=== PATIENT | male | born 1960 | race Two or more races ===

== ENCOUNTER 2023-12-25 10:35 | Emergency (ER) | payer MEDICARE, MEDICAID ==
[~2023-12-25] VITALS: Ht 175.3 cm; Wt 111.0 kg
--- NOTE | 2023-12-25 10:53 | ED.PDOC ---
HPI (NEURO) HPI Comments HPI: Poor Historian. 63-year-old male presents with four day history of nonspecific left-sided behind the ear pain that is worse with movement. No other particular alleviating or precipitating factors. Denies any other associated symptoms. Pain in the a particular focal area when he rotates his head left and right. Past Medcial History: CVA, hyperlipidemia Past Surgical History: Denies social history: endorses tobacco use, denies ETOH use, denies drug use medications: denies allergies: NKDA Vitals: Temp: 98.0 F Heart rate: 73 RR: 16 BP: 105/61 02 sat: 95% on room air REVIEW OF SYSTEMS: CONSTITUTIONAL: Denies acute: fever, diaphoresis, chills, generalized weakness. HEAD: Denies acute: photophobia Eyes: Denies acute: Double vision, vision loss, eye pain, eye discharge. EARS: Denies acute: tinnitus, hearing loss, ear discharge, ear pain, THROAT: Denies acute: sore throat, swelling, difficulty swallowing , pain with swall owing, change in voice. NECK: Denies acute: neck pain, neck swelling, stiff neck. HEART: Denies acute : chest pain, palpitations, LUNGS: Denies acute: SOB, wheezing, cough, hemoptysis ABDOMEN: Denies acute: abdominal pain, Nausea, Vomiting, diarrhea, melena , hematemesis, hematochezia SKIN: Denies acute: rash, redness, lesions, itchiness. EXTREMITIES: Denies acute: calf pain, numbness, tingling, weakness, denies pain in extremity. Denies acute: Low back pain. Neuro: Denies acute: focal neurological deficit, motor or sensory focal neurological deficit, tremors, seizure like activity, confusion, dizziness, change in mental status, loss of bowel or bladder function, cauda equina like symptoms. : Denies acute: dysuria, hematuria, flank pain, increase in urinary frequency. PSYCH: Denies acute: hallucination, suicidal ideation, homicidal ideation. PHYSICAL EXAM: General: no acute distress, awake and alert. Head: normocephalic, atraumatic. Neck: supple, trachea is midline, no swelling. Throat: Normal phonation. No appreciated submandibular lymphadenopathy. Eyes:, no erythema, no purulent discharge, no proptosis, no icterus. Heart: regular rate, regular rhythm, no significant murmur appreciated. Lungs: no apparent respiratory distress, Able to speak in full sentences. No wheezing, no rhonchi, no crackles. No stridors Clear to auscultation bilaterally. Abdomen: non tender to palpation, non distended, soft, no guarding, no rebound, + bowel sounds. Neuro: Awake, Alert, oriented to name, self, situation, follows commands GCS=15. Speech is normal. Skin: no petechia, no purpura, no cyanosis, non-pale, not jaundice. Lower extremities: --no - Pitting edema no deformity, no focal swelling, no calf TTP. Makes eye contact. moves all four extremities. Face: no apparent facial droop. Ambulating in the ED independently. Evaluation of the area of pain is very focal non swollen nonerythematous. Palpation of the mastoids does not reveal any focal tenderness to palpation or erythema or swelling. Stroke: finger to nose cerebellar testing is intact. No pronator drift. 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 No nystagmus. No nuchal rigidity, Kernig's sign, Brudzinski's sign, no meningeal signs. Chief Complaint: Headache Time Seen by MD: 10:55 Reviewed Notes: Medications, Allergies Information Source: Patient Mode of Arrival: Ambulatory Brought in by: self Past Medical History PAST MEDICAL HISTORY: CVA, High Lipids Surgical History: Denies all surgeries Family History Family History: Reviewed,noncontributory to illness Social History Smoker: Cigarettes Alcohol: Denies ETOH Use Drugs: Denies Drug Use Lives In: Home Was a procedure done? Was a procedure done?: No Differential Diagnosis (SZ) Headache: Other (DDX include Sinusitis, migraine, meningitis, hypertension, intracranial mass/bleed, stroke, radiculopathy, vertebrobasillary insufficiency, cephalgia, pseudotumor cerebri, cerebellar ischemia/infarct, carotid stenosis, lacunar infarct, vertebral/carotid artery dissection, hydrocephalus, temporal arteritis, dura venous sinus thrombosis.) X-Ray, Labs, Meds, VS Vital Signs Date Time Temp Pulse Resp B/P (MAP) Pulse Ox O2 Delivery O2 Flow Rate FiO2 12/25/23 14:07 98.2 65 17 110/69 (83) 97 98.2 12/25/23 12:02 98.3 67 16 107/66 (80) 96 98.3 12/25/23 12:02 67 16 96 Room Air 12/25/23 10:46 98.0 73 16 106/61 (76) 95 Lab Test 12/25/23 11:15 Range/Units White Blood Count 6.5 4.4-10.8 10^3/uL Red Blood Count 4.90 4.5-5.90 10^6/uL Hemoglobin 16.1 13.5-17.5 g/dL Hematocrit 46.5 41.0-53.0 % Mean Corpuscular Volume 94.9 80.0-100.0 fL Mean Corpuscular Hemoglobin 32.9 H 28.0-32.0 pg Mean Corpuscular Hemoglobin Concent 34.6 32.0-36.0 g/dL Red Cell Distribution Width 13.0 11.8-14.3 % Platelet Count 182 140-450 10^3/uL Mean Platelet Volume 7.9 6.9-10.8 fL Neutrophils (%) (Auto) 69.7 37.0-80.0 % Lymphocytes (%) (Auto) 21.8 10.0-50.0 % Monocytes (%) (Auto) 4.3 0.0-12.0 % Eosinophils (%) (Auto) 3.7 0.0-7.0 % Basophils (%) (Auto) 0.5 0.0-2.0 % Neutrophils # (Auto) 4.5 1.6-8.6 10 ^3/uL Lymphocytes # (Auto) 1.4 0.4-5.4 10 ^3/uL Monocytes # (Auto) 0.3 0-1.3 10 ^3/uL Eosinophils # (Auto) 0.2 0-0.8 10 ^3/uL Basophils # (Auto) 0 0-0.2 10 ^3/uL Nucleated Red Blood Cells 0.0 % Erythrocyte Sedimentation Rate 7 0-20 mm/hr Sodium Level 142 136-145 mmol/L Potassium Level 4.1 3.5-5.1 mmol/L Chloride Level 109 H 98-107 mmol/L Carbon Dioxide Level 28 20-31 mmol/L Anion Gap 5 5-15 Blood Urea Nitrogen 20 9-23 mg/dL Creatinine 1.21 0.700-1.30 mg/dL Glomerular Filtration Rate Calc 66 >90 mL/min BUN/Creatinine Ratio 16.5 10.0-20.0 Serum Glucose 147 H 74-106 mg/dL Calcium Level 9.5 8.7-10.4 mg/dL Troponin I High Sensitivity 3 L </=54 ng/L B-Type Natriuretic Peptide 42.40 0-100 pg/mL Current Medications Medications (Trade) Dose Ordered Sig/Francheska Route Start Time Stop Time Status Last Admin Acetaminophen/ Hydrocodone Bitart (Mccarr 5/325MG Tab) 1 tab ONCE ONCE PO 12/25/23 13:15 12/25/23 13:16 DC 12/25/23 13:22 [place] [address] Ph: [phone] DIAGNOSTIC IMAGING Diagnostic Imaging Report : [id number] Signed PATIENT: RAJNI ECHAVARRIACCT: [id number] UNIT: [id number] : 1960 LOC: ER ROOM / BED: / AGE / SEX: 63 / M ADM STATUS: REG ER SERVICE [id number] ORDERING PHYSICIAN: VIDAL WOODALL DO PROCEDURE(s): HWOCT - HEAD WITHOUT CONTRAST REASON: Left sided headache behind the L ear ORDER NUMBER(s): [id number], ACCESSION NUMBER(s): [id number] EXAM: CT HEAD WITHOUT CONTRAST INDICATION: Left sided headache behind the L ear TECHNIQUE: CT of the head without intravenous contrast. Coronal and sagittal reformatted images are submitted. Radiation Dose : 1. Head: CT Dose: CTDI volume is 60.9 mGy. Dose-length product is 1198.1 mGy*cm The dose indicators for CT are the volume Computed Tomography (CT) Dose Index (CTDIvol) and the Dose Length Product (DLP), and are measured in units of mGy and mGy-cm, respectively. These indicators are not patient dose, but values generated from the CT scanner acquisition factors. The report includes radiation exposure data for exposures received during this examination. All CT scans at this medical facility are performed using dose modulation techniques as appropriate to a performed exam including the following: Automated exposure control was utilized; adjustment of the MA and/or KV according to patient size; and use of iterative reconstruction technique. COMPARISON: None FINDINGS: There is no evidence of acute intracranial hemorrhage, extra-axial collection, mass effect, midline shift, herniation or hydrocephalus. There are periventricular and subcortical hypodensities, nonspecific, but likely reflecting sequelae of chronic microvascular ischemic changes. There is an old left periventricular lacunar infarct. There is a 3.0 x 3.0 cm CSF attenuating structure in the posterior fossa which may represent an arachnoid cyst or tasneem cisterna magna. The ventricles, sulci and cisterns are age appropriate. The navarro-white differentiation is intact. Mastoid air cells are clear. There is mucosal thickening in the left maxillary sinus and right maxillary sinus. No depressed calvarial fracture. The surrounding soft tissues are unremarkable. IMPRESSION: 1. No evidence of acute intracranial hemorrhage, mass effect or midline shift. 2. CSF attenuating structure in the posterior fossa measuring 3.0 cm which may represent arachnoid cyst or tasneem cisterna magna. ATED BY: DIANNE NUR MD DICTATED DATE/TIME: 12/25/23 1144 SIGNED BY: DIANNE NUR MD SIGNED DATE/TIME: 12/25/23 1144 CC: Time of 1ST Reevaluation: 14:00 Reevaluation 1ST: Improved Patient Education/Counseling: Diagnosis, Treatment Family Education/Counseling: No Family Present Comments Patient presented with the above HPI.--headache----workup was initiated. patient was found with the above mentioned diagnosis. Patient was given: Hydrocodone 5/325 Patient ED course and VS have been stabilized. Patient has been reassessed in the ED and remained in a stable condition. Pertinent incidental findings were discussed with the patient and/or family. Patient/family voices understanding and is agreeable with plan. Patient has been observed in the ED adequate length of time to insure improvement/stability. patient was discharged home in a stable condition. No acute findings. Patient is neurologically intact at his baseline. All the reports of any imaging studies that were ordered by myself were reviewed by myself. Departure 1 Departure Time of Disposition: 13:46 Impression: Primary Impression: Headache Disposition: 01 HOME / SELF CARE / HOMELESS Condition: Stable Additional Instructions: Additional discharge instructions: You MUST follow-up with your primary care/family doctor in 1 to 2 days. If you are unable to see your primary care/family doctor, please return to our emergency room for re-assessment and re-evaluation in 1 to 2 days. Return to the emergency room here in our facility or to the nearest ER [facility] if your symptoms change or worsen. CONSULTATIONS: you MUST Follow-up for consultation as soon as possible with: -neurology in 1-2 days. Please call for appointment You MUST call the consultants office yourself to make an appointment. You may need to arrange that through your insurance and/or your primary/family doctor. If you are unable to see the real estate consultant in 1 to 2 days, you must return to our emergency room (or any other ER of your choice) for re-assessment and re- evaluation. Adequate fluid hydration. Below is a copy of your radiological report for follow up: here is a copy of CT report performed in the ER: [place] [address] Ph: [phone] DIAGNOSTIC IMAGING Diagnostic Imaging Report : [id number] Signed PATIENT: CECILIA ECHAVARRIA ACCT: [id number] UNIT: [id number] : 1960 LOC: ER ROOM / BED: / AGE / SEX: 63 / M ADM STATUS: REG ER SERVICE 08 ORDERING PHYSICIAN: VIDAL WOODALL DO PROCEDURE(s): HWOCT - HEAD WITHOUT CONTRAST REASON: Left sided headache behind the L ear ORDER NUMBER(s): [id number], ACCESSION NUMBER(s): [id number] EXAM: CT HEAD WITHOUT CONTRAST INDICATION: Left sided headache behind the L ear TECHNIQUE: CT of the head without intravenous contrast. Coronal and sagittal reformatted images are submitted. Radiation Dose : 1. Head: CT Dose: CTDI volume is 60.9 mGy. Dose-length product is 1198.1 mGy*cm The dose indicators for CT are the volume Computed Tomography (CT) Dose Index (CTDIvol) and the Dose Length Product (DLP), and are measured in units of mGy and mGy-cm, respectively. These indicators are not patient dose, but values generated from the CT scanner acquisition factors. The report includes radiation exposure data for exposures received during this examination. All CT scans at this medical facility are performed using dose modulation techniques as appropriate to a performed exam including the following: Automated exposure control was utilized; adjustment of the MA and/or KV according to patient size; and use of iterative reconstruction technique. COMPARISON: None FINDINGS: There is no evidence of acute intracranial hemorrhage, extra-axial collection, mass effect, midline shift, herniation or hydrocephalus. There are periventricular and subcortical hypodensities, nonspecific, but likely reflecting sequelae of chronic microvascular ischemic changes. There is an old left periventricular lacunar infarct. There is a 3.0 x 3.0 cm CSF attenuating structure in the posterior fossa which may represent an arachnoid cyst or tasneem cisterna magna. The ventricles, sulci and cisterns are age appropriate. The navarro-white differentiation is intact. Mastoid air cells are clear. There is mucosal thickening in the left maxillary sinus and right maxillary sinus. No depressed calvarial fracture. The surrounding soft tissues are unremarkable. IMPRESSION: 1. No evidence of acute intracranial hemorrhage, mass effect or midline shift. 2. CSF attenuating structure in the posterior fossa measuring 3.0 cm which may represent arachnoid cyst or tasneem cisterna magna. ATED BY: DIANNE NUR MD DICTATED DATE/TIME: 12/25/23 1144 SIGNED BY: DIANNE NUR MD SIGNED DATE/TIME: 12/25/23 1144 CC: Discharged With: Self, Spouse Critical Care Note Critical Care Time?: No I personally scribed for VIDAL WOODALL DO ([email or web address]) on 12/25/23 at 10:53. Electronically submitted by Mariza Beaver ([email or web address]). I personally scribed for VIDAL WOODALL DO ([email or web address]) on 12/25/23 at 10:56. Electronically submitted by Mariza Beaver (DODIE). I personally scribed for VIDAL WOODALL DO ([email or web address]) on 12/25/23 at 11:54. Electronically submitted by Mariza Beaver (DODIE). I personally scribed for VIDAL WOODALL DO ([email or web address]) on 12/25/23 at 12:02. Electronically submitted by Mariza Beaver (DODIE). I personally scribed for VIDAL WOODALL DO ([email or web address]) on 12/25/23 at 14:05. Electronically submitted by Mariza Beaver (DODIE). VIDAL WOODALL DO Dec 25, 2023 10:53
--- NOTE | 2023-12-25 11:46 | DVH ---
EXAM: CT HEAD WITHOUT CONTRAST INDICATION: Left sided headache behind the L ear TECHNIQUE: CT of the head without intravenous contrast. Coronal and sagittal reformatted images are submitted. Radiation Dose : 1. Head: CT Dose: CTDI volume is 60.9 mGy. Dose-length product is 1198.1 mGy*cm The dose indicators for CT are the volume Computed Tomography (CT) Dose Index (CTDIvol) and the Dose Length Product (DLP), and are measured in units of mGy and mGy-cm, respectively. These indicators are not patient dose, but values generated from the CT scanner acquisition factors. The report includes radiation exposure data for exposures received during this examination. All CT scans at this medical facility are performed using dose modulation techniques as appropriate to a performed exam including the following: Automated exposure control was utilized; adjustment of the MA and/or KV according to patient size; and use of iterative reconstruction technique. COMPARISON: None FINDINGS: There is no evidence of acute intracranial hemorrhage, extra-axial collection, mass effect, midline s hift, herniation or hydrocephalus. There are periventricular and subcortical hypodensities, nonspecific, but likely reflecting sequelae of chronic microvascular ischemic changes. There is an old left periventricular lacunar infarct. There is a 3.0 x 3.0 cm CSF attenuating structure in the posterior fossa which may represent an arach noid cyst or tasneem cisterna magna. The ventricles, sulci and cisterns are age appropriate. The navarro-white differentiation is intact. Mastoid air cells are clear. There is mucosal thickening in the left maxillary sinus and right maxill evan sinus. No depressed calvarial fracture. The surrounding soft tissues are unremarkable. IMPRESSION: 1. No evidence of acute intracranial hemorrhage, mass effect or midline shift. 2. CSF attenuating structure in the posterior fossa measuring 3.0 cm which may represent arachnoid cy st or tasneem cisterna magna.
[2023-12-25 11:53] LABS: Basophils # (auto) 0 10 ^3/uL (0-0.2); Basophils % (auto) 0.5 % (0.0-2.0); Eosinophils # (auto) 0.2 10 ^3/uL (0-0.8); Eosinophils % (auto) 3.7 % (0.0-7.0); Hematocrit 46.5 % (41.0-53.0); Hemoglobin 16.1 g/dL (13.5-17.5); Lymphocytes # (auto) 1.4 10 ^3/uL (0.4-5.4); Lymphocytes % (auto) 21.8 % (10.0-50.0); Mean Corpuscular Hemoglobin 32.9 pg (28.0-32.0); Mean Corpuscular Hgb Conc. 34.6 g/dL (32.0-36.0); Mean Corpuscular Volume 94.9 fL (80.0-100.0); Monocytes # (auto) 0.3 10 ^3/uL (0-1.3); Monocytes % (auto) 4.3 % (0.0-12.0); Neutrophils # (auto) 4.5 10 ^3/uL (1.6-8.6); Neutrophils % (auto) 69.7 % (37.0-80.0); Platelet Count (auto) 182 10^3/uL (140-450); White Blood Cell 6.5 10^3/uL (4.4-10.8)
[2023-12-25 13:14] LABS: Erythrocyte Sedimentation Rate 7 mm/hr (0-20)
[2023-12-25] MEDS: HYDROcodone-ACET 5/325MG TAB PO ONE (13:22)
[2023-12-25 13:25] LABS: Chloride 109 mmol/L (98-107); Potassium 4.1 mmol/L (3.5-5.1); Sodium 142 mmol/L (136-145)
[2023-12-25 13:26] LABS: Anion Gap 5 (5-15); Calcium 9.5 mg/dL (8.7-10.4); Carbon Dioxide 28 mmol/L (20-31)
[2023-12-25 13:31] LABS: BUN/Creatinine Ratio 16.5 (10.0-20.0); Blood Urea Nitrogen 20 mg/dL (9-23); Glucose 147 mg/dL (74-106)
[2023-12-25 14:07] VITALS: BP 110/69; PULSE 65; RESP 17; TEMP 98.2; O2SAT 97
== END 2023-12-25 14:00 | disposition home or self-care (01) ==
LOC: ER 10:35
DX: R51.9 Headache, unspecified (principal); E78.5 Hyperlipidemia, unspecified; F17.210 Nicotine dependence, cigarettes, uncomplicated; Z86.73 Personal history of transient ischemic attack (TIA), and cerebral infarction without residual deficits
CPT/HCPCS: 36415; 70450; 80048; 83880; 84484; 85025; 85652